=== PATIENT | female | born 1990 | race African-American/Black ===

== ENCOUNTER 2016-04-04 20:28 | Observation (INO) | payer SELFPAY ==
[~2016-04-04] VITALS: Ht 157.5 cm; Wt 44.0 kg
[2016-04-04 21:15] LABS: BILIRUBIN,URINE NEGATIVE (NEG); GLUCOSE,URINE NEGATIVE (NEG); NITRITE,URINE NEGATIVE (NEG); PROTEIN,URINE NEGATIVE (NEG-TRACE)
[2016-04-04 21:25] LABS: RBC,URINE RARE /HPF (0-2)
[2016-04-04 21:26] LABS: BACTERIA,URINE FEW /HPF (0-FEW); SQUAMOUS EPITHELIAL CELL,UR MANY /LPF; WBC,URINE 20-40 /HPF (0-4)
[2016-04-04] MEDS ORDERED: IV NORMAL SALINE 1000ML BAG 1,000 ML IV ONE (23:15)
[2016-04-04 23:31] LABS: POTASSIUM ISTAT 4.3 mmol/L (3.5-5.0)
[2016-04-04 23:35] LABS: BASO % 1 % (0-3); EOS % 1 % (0-3); HEMATOCRIT 32.3 % (36.0-47.0); LYMPH # 2.1 x10^3/uL (1.0-4.8); LYMPH % 23 % (24-48); MEAN CORPUSCULAR HEMOGLOBIN 30 pg (25-35); MEAN CORPUSCULAR HGB CONC 34 g/dL (31-37); MEAN CORPUSCULAR VOLUME 89 fL (79-100); MONO % 9 % (0-9); NEUT % 67 % (31-73); PLATELET COUNT 254 x10^3/uL (140-400); RED BLOOD COUNT 3.61 x10^6/uL (3.50-5.40); WHITE BLOOD COUNT 9.2 x10^3/uL (4.0-11.0)
[2016-04-04 23:50] LABS: CALCIUM 9.2 mg/dL (8.5-10.1); CREATININE 0.6 mg/dL (0.6-1.0); GFR 148.6; POTASSIUM 3.8 mmol/L (3.5-5.1)
[2016-04-04] MEDS ORDERED: CEPHALEXIN 250 MG CAPSULE PO ONE (23:55)
[2016-04-05] MEDS ORDERED: CEPH-264 PO (00:35)
[2016-04-05 00:43] VITALS: BP 93/66
--- NOTE | 2016-04-05 03:07 | ED.ADGEN ---
Past Medical History Past Medical History: No Pertinent History Past Surgical History: No Surgical History Alcohol Use: None Drug Use: None Adult General Chief Complaint Chief Complaint: DIZZY/LIGHT HEADED HPI HPI Patient is a 25 year old woman, , 28 weeks , who presents to the emergency department with a complaint of dizziness that began this afternoon. Patient states that symptoms began when she was walking up stairs at home, and now she is feeling dizzy with any motion lying flat, t, described as a vertiginous and lightheaded symptom. She did not have any palpitations, any nausea or vomiting, any weakness, numbness or tingling, any vision changes, any syncope or near-syncope. No chest pain or shortness of breath. Denies any urinary complaints. Patient states that she is "hungry all the time", last meal was early this evening. Patient's sister is present with her in the ED. Patient denies any trauma, any back pain, any other symptoms, or similar symptoms previously. No concerning family history reported. Review of Systems Review of Systems Constitutional: Denies fever or chills. [] Eyes: Denies change in visual acuity. [] HENT: Denies nasal congestion or sore throat. [] Respiratory: Denies cough or shortness of breath. [] Cardiovascular: Denies chest pain or edema. [] GI: Denies abdominal pain, nausea, vomiting, bloody stools or diarrhea. [] : Denies dysuria. [] Musculoskeletal: Denies back pain or joint pain. [] Integument: Denies rash. [] Neurologic: Denies headache, focal weakness or sensory changes. [Light headedness and dizziness.] Endocrine: Denies polyuria or polydipsia. [] Lymphatic: Denies swollen glands. [] Psychiatric: Denies depression or anxiety. [] Current Medications Current Medications Current Medications Medications (Trade) Dose Ordered Sig/Leigh Start Time Stop Time Status Last Admin Dose Admin Cephalexin HCl (Keflex) 500 mg 1X ONCE 04/04/16 23:55 04/04/16 23:56 DC 04/04/16 23:55 500 MG Sodium Chloride (Iv Sodium Chloride 0.9% 1000ml Bag) 1,000 ml @ 1,000 mls/hr 1X ONCE 04/04/16 23:15 04/05/16 00:14 DC 04/04/16 23:31 1,000 MLS/HR Allergies Allergies Allergies Coded Allergies Type Severity Reaction Last Updated Verified No Known Drug Allergies 03/13/13 No Physical Exam Physical Exam Constitutional: Well developed, well nourished, no acute distress, non-toxic appearance. [] HENT: Normocephalic, atraumatic, bilateral external ears normal, oropharynx moist, no oral exudates, nose normal. [] Eyes: PERRLA, EOMI, conjunctiva normal, no discharge. [] Neck: Normal range of motion, no tenderness, supple, no stridor. [] Cardiovascular:Heart rate regular rhythm, no murmur, S1, S2, no rubs or gallops. [] Lungs & Thorax: Bilateral breath sounds clear to auscultation, no wheezing, rhonchi, rales. [] Abdomen: Bowel sounds normal, soft, gravid abdomen, consistent with dates, no tenderness, no rebound, rigidity, no guarding no masses, no pulsatile masses. heart tones in the 140s. [] Skin: Warm, dry, no erythema, no rash. [] Back: No tenderness, no CVA tenderness. [] Extremities: No tenderness, no cyanosis, no clubbing, ROM intact, no edema. [] Neurologic: Alert and oriented X 3, normal motor function, normal sensory function, no focal deficits noted. No nystagmus.[] Psychologic: Affect normal, judgement normal, mood normal. [] Current Patient Data Vital Signs Vital Signs Date Time Temp Pulse Resp B/P Pulse Ox O2 Delivery O2 Flow Rate FiO2 04/05/16 00:43 90 20 93/66 99 Room Air 04/04/16 20:55 98.7 98.7 Lab Values Laboratory Tests Test 04/04/16 21:00 04/04/16 21:10 04/04/16 23:24 04/04/16 23:26 Urine Collection Type Unknown Urine Color Yellow Urine Clarity Clear Urine pH 8.0 Urine Specific [place] 1.015 Urine Protein Negativemg/dL (NEG-TRACE) Urine Glucose (UA) Negativemg/dL (NEG) Urine Ketones (Stick) Negativemg/dL (NEG) Urine Blood Negative (NEG) Urine Nitrite Negative (NEG) Urine Bilirubin Negative (NEG) Urine Urobilinogen Dipstick 1.0mg/dL (0.2 mg/dL) Urine Leukocyte Esterase Moderate (NEG) Urine RBC Rare/HPF (0-2) Urine WBC 20-40/HPF (0-4) Urine Squamous Epithelial Cells Many/LPF Urine Bacteria Few/HPF (0-FEW) Urine Mucus Slight/LPF Glucose (Fingerstick) 80mg/dL (70-99) White Blood Count 9.2x10^3/uL (4.0-11.0) Red Blood Count 3.61x10^6/uL (3.50-5.40) Hemoglobin 11.0g/dL (12.0-15.5) L Hematocrit 32.3% (36.0-47.0) L Mean Corpuscular Volume 89fL (79-100) Mean Corpuscular Hemoglobin 30pg (25-35) Mean Corpuscular Hemoglobin Concent 34g/dL (31-37) Red Cell Distribution Width 14.0% (11.5-14.5) Platelet Count 254x10^3/uL (140-400) Neutrophils (%) (Auto) 67% (31-73) Lymphocytes (%) (Auto) 23% (24-48) L Monocytes (%) (Auto) 9% (0-9) Eosinophils (%) (Auto) 1% (0-3) Basophils (%) (Auto) 1% (0-3) Neutrophils # (Auto) 6.1x10^3uL (1.8-7.7) Lymphocytes # (Auto) 2.1x10^3/uL (1.0-4.8) Monocytes # (Auto) 0.8x10^3/uL (0.0-1.1) Eosinophils # (Auto) 0.1x10^3/uL (0.0-0.7) Basophils # (Auto) 0.0x10^3/uL (0.0-0.2) Sodium Level 132mmol/L (136-145) L Potassium Level 3.8mmol/L (3.5-5.1) Chloride Level 100mmol/L (98-107) Carbon Dioxide Level 23mmol/L (21-32) Anion Gap 9 (6-14) 15mmol/L (6-14) H Blood Urea Nitrogen 13mg/dL (7-20) Creatinine 0.6mg/dL (0.6-1.0) Estimated GFR (Cockcroft-Gault) 148.6 Glucose Level 82mg/dL (70-99) 78mg/dL (70-99) Calcium Level 9.2mg/dL (8.5-10.1) Troponin I Quantitative < 0.017ng/mL (0.000-0.055) POC Hemoglobin 10.2g/dL (12-15) L POC Hematocrit 30% (36-40) L POC Sodium 134mmol/L (135-145) L POC Potassium 4.3mmol/L (3.5-5.0) POC Chloride 102mmol/L (98-110) POC Total CO2 23mmol/L (23-32) POC Blood Urea Nitrogen 14mg/dL (8-26) POC Creatinine 0.6mg/dL (0.5-1.4) POC Ionized Calcium (Caro) 1.17mmol/L (1.13-1.32) Laboratory Tests 04/04/16 23:24 Laboratory Tests 04/04/16 23:24 04/04/16 23:26 EKG EKG EC: Sinus rhythm, heart rate 74 beats/minute, upright axis, QTC of 436, W[place] 130, QRS of 86, incomplete right bundle-branch block noted, abnormal ECG, may be consistent with body habitus and age, does not meet STEMI criteria. As interpreted by me. Radiology/Procedures Radiology/Procedures Not indicated. [] Course & Med Decision Making Course & Med Decision Making Pertinent Labs and Imaging studies reviewed. (See chart for details) Patient well-appearing, denies any headache, any concerning exposure history or symptoms aside from vertiginous type symptoms, which are worse with head motion and standing. Blood glucose was 80 upon arrival to the ED. Orthostatic vital signs, heart rate 79-88, oxygen saturation of 90 and 100% throughout, blood pressure between 102/63 and 119/74, with mild increase in dizziness with sitting , and no change between sitting and standing. EG does not reveal any acutely concerning findings, laboratory studies obtained after patient examination, hemoglobin of 11, no significant I normalities identified, noted to have white blood cells and bacteria in the urine. Did discuss these findings with the patient. Patient did receive IV fluids and a meal of crackers and juice in the ED. On reevaluation she states she is feeling much better. I did discuss with her concerning symptoms that would prompt additional evaluation and return to the emergency department, also discussed importance of staying well-hydrated, and eating multiple small meals throughout the day to prevent hypoglycemia from developing, patient voiced understanding and agreement with these instructions. At this time she is feeling well, and would like to proceed on to labor and delivery for evaluation of her . As stated heart tones were in the 140s in the ED, and she is denying any abdominal complaints. Patient now ambulating in the ED without any difficulty, states that her symptoms are nearly fully resolved. Patient discharged to labor and delivery after receiving first dose of Keflex in the ED, with prescription for Keflex, instructed to follow-up with her primary care provider in 7 days for test of cure, and to return for concerning symptoms. Dragon Disclaimer Dragon Disclaimer This electronic medical record was generated, in whole or in part, using a voice recognition dictation system. Departure Impression: Primary Impression: Dizziness Disposition: 01 HOME, SELF-CARE Condition: IMPROVED Scripts Cephalexin (Keflex)500 Mg [id number] Mg PO BID #14 CAP Prov:CAROLINA STOCK DO 04/05/16 CAROLINA STOCK DO Apr 05, 2016 03:07
--- NOTE | 2016-04-05 18:47 | EKG ---
[facility] [address] [place] [address] Test Date: 2016-04-04 Test Time: 20:54:09 Pat Name: ALEXX MEEKS Department: Room: 389 1 Gender: F Advertising Sales Consultant: : [id number] Requested By: AUGUSTUS HUANG Order Number: [id number] Reading MD: Maame Johnson Measurements Intervals [place] Rate: 74 P: 25 ID: 130 QRS: 6 QRSD: 86 T: 10 QT: 392 QTc: 436 Interpretive Statements SINUS RHYTHM INCOMPLETE RIGHT BUNDLE BRANCH BLOCK T ABNORMALITY IN ANTERIOR LEADS ABNORMAL ECG RI6.01 No previous ECG available for comparison Electronically Signed On 04-06-2016 19:00:14 [employer] by Maame Johnson
== END 2016-04-05 01:44 | disposition home or self-care (01) ==
LOC: ER 20:28 → 3 SO LND 04-05 00:57
PROVIDERS: ADMIT Obstetrics & Gynecology; ATTEND Obstetrics & Gynecology
DX: O26.893 Other specified pregnancy related conditions, third trimester (principal); R42 Dizziness and giddiness; Z3A.28 28 weeks gestation of pregnancy
CPT/HCPCS: 36415; 80047; 80048; 81001; 82947; 84484; 85027; 87086; 93005; 96360; 99285; G0378; J7030; G0379